=== PATIENT | female | born 1965 | race African-American/Black ===

== ENCOUNTER 2017-04-05 10:00 | Emergency (ER) | payer BC, OTHER ==
--- NOTE | 2017-04-05 10:29 | EDM.PDOC ---
ED HPI GENERAL MEDICAL PROBLEM - General Chief Complaint: Cardiovascular Problem Stated Complaint: HIGH BP Time Seen by Provider: 04/05/17 10:20 Source of Information: Reports: Patient History Limitations: Reports: No Limitations - History of Present Illness INITIAL COMMENTS - FREE TEXT/NARRATIVE: 51-year-old female presents to the ED with painful left shoulder. She states that she injured the shoulder when she was tossing a heavy bag of garbage into the garbage can about 10 days ago. She felt something pull and strain and within her left shoulder. Since then it is considered to be painful and limits her ability to forward flex or to abduct. She went to the clinic at [facility] this morning to have it assessed for the first time. They identified her to be significantly hypertensive with BP 223/124. She was sent immediately to the ED for hypertensive crisis. Patient denies headache nausea vomiting blurred vision or vertigo symptoms. States she is told in the past that she has mild hypertension but wasn't high enough to treat with medication. Hypertension runs in her family. She states left shoulder is quite painful with certain movements and she's unable to sleep on it. ECG done by triage nurse shows sinus tachycardia at 116. Minute with T-wave inversion V1 and V2 which by itself is nonspecific. There is borderline criteria for left ventricular pattern there is a first-degree AV block. Some early deep repolarization pattern abnormalities in II, III, and F aVF likely related to rate. No ischemic signs are evident. BP on initial recording in the ED was 208/113. She is quite apprehensive and therefore lateral adopt a wait and see approach to her blood pressure. Onset: Sudden Onset Date: 03/25/17 Duration: Day(s): (About 10 days ago she injured her left shoulder.) Location: Reports: Upper Extremity, Left (Left shoulder and upper anterior chest pain. She is right-hand dominant.) Quality: Reports: Ache, Sharp, Stabbing Severity: Moderate (With certain movements.) Improves with: Reports: Rest Worsens with: Reports: Other, Movement (lying on it and movement.) Context: Denies: Activity, Exercise, Lifting, Sick Contact, Trauma, Other Associated Symptoms: Denies: Headaches, Loss of Appetite, Malaise, Nausea/ Vomiting, Rash, Seizure, Shortness of Breath, Syncope, Weakness Treatments MANAGER TALENT: Reports: Acetaminophen, NSAIDS (Motrin.) Left Shoulder Pain Score (Numeric/FACES): 7 - Related Data Allergies Allergy/AdvReac Type Severity Reaction Status Date / Time No Known Allergies Allergy Verified 04/05/17 10:11 Home Meds: Home Meds Diclofenac Sodium [Voltaren] 50 mg PO TID #30 tab.ec 04/05/17 [Rx] Lisinopril/Hydrochlorothiazide [Lisinopril-Hctz 20-12.5 mg Tab] 1 each PO DAILY #30 tablet 04/05/17 [Rx] Past Medical History [employer] History: Reports: - Past Surgical History Musculoskeletal Surgical History: Reports: Other (See Below) Other Musculoskeletal Surgeries/Procedures:: ankle repair Social & Family History - Tobacco Use Smoking Status *Q: Never Smoker - Recreational Drug Use Recreational Drug Use: No - Living Situation & Occupation Living situation: Reports: Single Occupation: Employed ED ROS GENERAL - Review of Systems Review Of Systems: See Below Constitutional: Reports: Fatigue HEENT: Reports: No Symptoms (From not sleeping well due to shaft left shoulder pain for the last 10 days.). Denies: Eye Discharge, Eye Pain, Glasses, Hearing Loss, Nosebleed, Throat Swelling, Vision Change Respiratory: Reports: No Symptoms Cardiovascular: Reports: Chest Pain (Has some pain along her left clavicle particularly with the sternocleidomastoid inserts. Hurts to turn her head to the right side.), Dyspnea on Exertion (Chronically due to her weight.). Denies : Claudication, Edema, Lightheadedness, Orthopnea Endocrine: Reports: Fatigue GI/Abdominal: Reports: No Symptoms : Reports: No Symptoms Musculoskeletal: Reports: Shoulder Pain (See history of present illness) Skin: Reports: No Symptoms Neurological: Reports: No Symptoms Psychiatric: Reports: No Symptoms Hematologic/Lymphatic: Reports: No Symptoms Immunologic: Reports: No Symptoms ED EXAM, GENERAL - Physical Exam Exam: See Below Exam Limited By: No Limitations General Appearance: Alert, WD/WN, Moderate Distress (Very anxious.) Eye Exam: Bilateral Eye: Normal Inspection Ears: Normal TMs Head: Atraumatic, Normocephalic Neck: Normal Inspection, Supple, Non-Tender, Full Range of Motion, Other (Does have some pain along her superior aspect of the left clavicle when she turns her head to the right sternocleidomastoid muscle inserts along the clavicle.). No: Lymphadenopathy (L), Lymphadenopathy (R) Respiratory/Chest: No Respiratory Distress, Lungs Clear, Normal Breath Sounds, Chest Non-Tender Cardiovascular: Regular Rate, Rhythm, No Edema (Tachycardic at rest due to anxiety.), No Gallop, No Murmur, No Rub, Tachycardia, Other (Blood pressure is significantly elevated at 2 08/02/18.) Peripheral Pulses: 3+: Radial (L), Radial (R) Back Exam: Normal Inspection, Full Range of Motion. No: CVA Tenderness (L), CVA Tenderness (R) Extremities: Other (Examination of the left shoulder shows pain over the coracoid process marked pain on the distribution of the short head of biceps tendon and some tendinitis limited ability to abduct the shoulder past 50 due to supraspinatus tendinitis and bursitis No evidence of complete tear of rotator cuff. ) Neurological: Alert, Oriented, CN II-XII Intact, Normal Cognition, Normal Gait Psychiatric: Normal Affect, Anxious Skin Exam: Warm, Dry, Intact, Normal Color, No Rash EKG INTERPRETATION EKG Date: 04/05/17 Time: 10:07 Rhythm: Other (Sinus tachycardia at 1 16/m) Rate (Beats/Min): 116 [place]: Normal P-Wave: Present (P-wave is inverted V1 and base 2. Nonspecific finding first- degree AV block.) QRS: Other (Borderline criteria for left ventricular hypertrophy pattern.) ST-T: Other (There is an early repolarization pattern leads to 3 and aVF which skews the baseline slightly upwards. no ST segment elevation.) QT: Normal EKG Interpretation Comments: Abnormal ECG. Course - Vital Signs Last Recorded V/S: Last Vital Signs Temp 36.5 C 04/05/17 10:05 Pulse 110 H 04/05/17 10:05 Resp 18 04/05/17 10:05 BP 206/119 H 04/05/17 10:05 Pulse Ox 98 04/05/17 10:05 - Orders/Labs/Meds Orders: Active Orders 24 hr Category Date Time Status EKG 12 Lead [EKG Documentation Completion] [RC] STAT Care 04/05/17 10:32 Active Shoulder Comp Lt [CR] Stat Exams 04/05/17 10:29 Taken - Radiology Interpretation Free Text/Narrative:: 51-year-old female presents to the ED for evaluation of left shoulder pain. She was sent across from [facility] walk-in clinic. 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 She is very apprehensive about going to see the doctor. BP was 223/124 at their facility. She states she's been told she has borderline hypertension but never this high or never high enough to require medication. In regards to left shoulder it started about 10 days ago when she threw a large bag of trash into the dumpster. She states she swung the bag and felt a rip tear in her left shoulder. It's been very painful since that time. The benefit she can hardly use the left arm to lift above her head. She cannot sleep on the shoulder. She has some pain along the distribution of her clavicle and upper anterior left chest as well. This of coarse concerned the provider at [facility] in regards to possible heart attack and she was therefore sent to the ED. BP here is elevated at 2 08/02/18. Patient is extremely apprehensive. ECG shows sinus tachycardia at 1 16/m with no signs of ischemia. There are borderline criteria for left ventricular hypertrophy pattern suggesting she likely has a underlying hypertensive problem. Plan x-ray left shoulder. Monitor BP. - Re-Assessments/Exams Free Text/Narrative Re-Assessment/Exam: 04/05/17 11:11 X-rays of the left shoulder is completely normal. Blood pressures come down to 157/91 and then 166/84. She therefore does have mild to moderate hypertension with primarily systolic hypertension component. Will elected treated with lisinopril 20 mg once daily. She had normal lab work done in February the clinic and was told her renal function was normal. Require repeat renal function testing in 3-4 weeks time. In regards to her shoulder I'm going to give her Voltaren 50 mg 3 times daily for 10 days to relieve pain and inflammation which may aggravate her hypertension. Getting better in terms of ability to abduct or forward flex her shoulder ,she is to follow-up with orthopedic surgery Dr. Garcia. Departure - Departure Time of Disposition: 11:29 Disposition: Home, Self-Care 01 Condition: Fair Clinical Impression: Essential hypertension, Biceps tendinitis of left shoulder Prescriptions: Diclofenac Sodium [Voltaren] 50 mg PO TID #30 tab.ec Lisinopril/Hydrochlorothiazide [Lisinopril-Hctz 20-12.5 mg Tab] 1 each PO DAILY #30 tablet Referrals: PCP,Not In Area [Primary Care Provider] - Forms: ED Department Discharge Additional Instructions: Evaluation the emergent today in regards to left shoulder pain that started about 10-12 days ago when you through a heavy bag of garbage into the dumpster. This strained some of the tendons and the shoulder particularly the biceps tendon in the left anterior lateral shoulder. There is mild evidence of upper spinatus tendinitis as well where you have difficulty abducting the shoulder or lifting it sideways. Identified to have high blood pressure at the clinic and that was the other reason he was sent to the ED because was quite high. However time your blood pressures come down substantially. At time of discharge was 157/ 84 indicating that you do have some mild essential hypertension. Treatment is indicated and I will therefore place her on lisinopril/hydrochlorothiazide 20/ 12.5 mg tablet once daily every morning. He will need follow-up in the clinic in 3 weeks' time for repeat blood tests primarily to assess your kidney function serum potassium levels. Also if you get a chance check her blood pressure outside of the clinic or hospital such as [facility] during of the pharmacies write down the date and time the numbers that you get. Only check onetime in each arm. Repeat checks done [id number] can often cause markedl elevation of the blood pressure. In regards to your shoulder there is evidence of tendinitis which often will take at least 6 weeks to start to heal well. Heat packs to the area for pain relief is okay. Suggest use of Voltaren 50 mg 3 times daily for the next 10 days to relieve pain and inflammation of the shoulder and see if we can get the tendon to heal a bit faster for you. If still unable to lift her arm forward flexing or to the side and upwards by abduction in 12-14 days time should be followed up by orthopedic surgeon. At this time suggest follow-up with Dr. Garcia whose offices on the other side of the hospital. His number is [phone] to arrange an appointment. - My Orders Last 24 Hours: My Active Orders 04/05/17 10:29 Shoulder Comp Lt [CR] Stat 04/05/17 10:32 EKG 12 Lead [EKG Documentation Completion] [RC] STAT - Assessment/Plan Last 24 Hours: My Active Orders 04/05/17 10:29 Shoulder Comp Lt [CR] Stat 04/05/17 10:32 EKG 12 Lead [EKG Documentation Completion] [RC] STAT
--- NOTE | 2017-04-05 11:44 | CR ---
Left shoulder: Three views of the left shoulder were obtained. Distal clavicle slightly elevated in relation to the acromion process. Glenohumeral joint is unremarkable. No acute fracture or other abnormality is appreciated. Impression: 1. Slightly elevated clavicle in relation to the acromion process. Findings may represent minimal acromioclavicular separation, either acute or chronic, as well as change from chronic laxity at the acromioclavicular joint. 2. Left shoulder study is otherwise unremarkable. Diagnostic code #2
== END 2017-04-05 11:47 | disposition home or self-care (01) ==
LOC: JD.ED 10:00
DX: M75.22 Bicipital tendinitis, left shoulder (principal); I10 Essential (primary) hypertension; Z79.899 Other long term (current) drug therapy
CPT/HCPCS: 73030-26-LT; 73030-LT; 93005; 99284; 99284-25